=== PATIENT | female | born 1975 | race African-American/Black ===

== ENCOUNTER 2018-06-01 12:55 | Emergency (ER) | payer OTHER ==
[~2018-06-01] VITALS: Ht 165.1 cm; Wt 56.7 kg
[~2018-06-01 12:55] MED LIST: IBUP-1542 PO
[2018-06-01 13:54] VITALS: Ht 165.1 cm; Wt 56.7 kg
[2018-06-01] MEDS ORDERED: NORE1TAB12 PO (16:42)
[2018-06-01] MEDS ORDERED: SOD CHLORIDE 0.9% 1,000 ML IV STA (16:42)
--- NOTE | 2018-06-01 16:44 | ERD ---
ER Documentation Chief Complaint Chief Complaint ref: pancreatitis w 'increasing amylase'. L sided AP HPI 42-year-old female referred by her PMD for abdominal pain evaluation and increasing amylase level over the past few months. On initial blood tests done, the patient was noted to have a slightly increased amylase level on routine blood tests. For this reason, her primary care doctor has been monitoring her amylase. About 2 months ago, she underwent treatment for H pylori as well as PID. She states that her treatment finished about 2 weeks ago and she was doing well. On May 22 she went in for repeat blood tests and her amylase was noted to be elevated and increasing compared to prior. Since yesterday she has been having left-sided upper abdominal pain that has been constant, aching, occasionally radiating to her left flank and right lower quadrant. She has had associated decreased appetite but no nausea, vomiting, fever, chills, diarrhea. She does complain of constipation for the past few days as well. She is having only small bowel movements that are nonbloody without melena. Today she was going back to her primary care doctor for repeat blood test. Since she was having abdominal pain, she was sent to the ER. Per the patient, her primary care physician was concerned about pancreatitis although her lipase has never been elevated. She did have a recent ultrasound done outpatient as well which the patient showed me, and it was read as normal without any evidence of gallstones or pancreatic abnormalities. Of note, the patient is scheduled for a CT scan next week, ordered by her PMD for her lab abnormalities. ROS All systems reviewed and are negative except as per history of present illness. Medications Home Meds Reported Medications Noreth A-Et Estra/Fe Fumarate (LO LOESTRIN FE 1-10 TABLET) 1 Each Tablet, 1 TAB PO DAILY 06/01/18 Discontinued Scripts Ibuprofen* (Ibuprofen*) 600 Mg Tablet, 600 MG PO Q6H PRN for P, #30 TAB Prov:ERYN MEZA NP 11/27/14 Allergies Allergies: Coded Allergies: penicillin (Verified Allergy, Unknown, 06/01/18) PMhx/Soc History of Surgery: Yes (R. BREAST, L.FOOT, ) Anesthesia Reaction: No Hx Neurological Disorder: No Hx Respiratory Disorders: No Hx Cardiac Disorders: No Hx Psychiatric Problems: No Hx Miscellaneous Medical Probl: Yes (H.pylori, PID) Hx Alcohol Use: No Hx Substance Use: No Hx Tobacco Use: No FmHx Family History: No diabetes Physical Exam Vitals Vital Signs Date Temp Pulse Resp B/P (MAP) Pulse Ox O2 O2 Flow FiO2 Time Delivery Rate 06/01/18 98.3 72 18 116/88 100 Room Air 18:57 (97) 06/01/18 98.3 73 16 129/72 100 13:54 (91) Physical Exam Const: No acute distress Head: Atraumatic Eyes: Normal Conjunctiva ENT: Normal External Ears, Nose and Mouth. Neck: Full range of motion. No meningismus. Resp: Clear to auscultation bilaterally Cardio: Regular rate and rhythm, no murmurs Abd: Soft, left upper quadrant tender to deep palpation without rebound or guarding. No McBurney's point tenderness. Negative Castillo sign. non distended. Normal bowel sounds Skin: No petechiae or rashes Back: No midline or flank tenderness Ext: No cyanosis, or edema Neur: Awake and alert Psych: Normal Mood and Affect Result Diagram: 06/01/18 1716 06/01/18 1716 Results 24 hrs Laboratory Tests Test 06/01/18 17:16 White Blood Count 6.7 10^3/ul Red Blood Count 4.40 10^6/ul Hemoglobin 13.5 g/dl Hematocrit 41.4 % Mean Corpuscular Volume 94.1 fl Mean Corpuscular Hemoglobin 30.7 pg Mean Corpuscular Hemoglobin Concent 32.6 g/dl Red Cell Distribution Width 12.9 % Platelet Count 217 10^3/UL Mean Platelet Volume 11.7 fl Immature Granulocytes % 0.100 % Neutrophils % 59.3 % Lymphocytes % 32.3 % Monocytes % 6.4 % Eosinophils % 1.3 % Basophils % 0.6 % Nucleated Red Blood Cells % 0.0 /100WBC Immature Granulocytes # 0.010 10^3/ul Neutrophils # 4.0 10^3/ul Lymphocytes # 2.2 10^3/ul Monocytes # 0.4 10^3/ul Eosinophils # 0.1 10^3/ul Basophils # 0.0 10^3/ul Nucleated Red Blood Cells # 0.0 10^3/ul Urine Color YELLOW Urine Clarity SLIGHTLY CLOUDY Urine pH 7.0 Urine Specific Grant 1.017 Urine Ketones NEGATIVE mg/dL Urine Nitrite NEGATIVE mg/dL Urine Bilirubin NEGATIVE mg/dL Urine Urobilinogen NEGATIVE mg/dL Urine Leukocyte Esterase TRACE Angela/ul Urine Microscopic RBC 3 /HPF Urine Microscopic WBC 2 /HPF Urine Squamous Epithelial Cells FEW /HPF Urine Mucus FEW /HPF Urine Hemoglobin NEGATIVE mg/dL Urine Glucose NEGATIVE mg/dL Urine Total Protein NEGATIVE mg/dl Sodium Level 141 mmol/L Potassium Level 3.8 mmol/L Chloride Level 105 mmol/L Carbon Dioxide Level 24 mmol/L Anion Gap 12 Blood Urea Nitrogen 9 mg/dl Creatinine 0.81 mg/dl Est Glomerular Filtrat Rate mL/min > 60 mL/min Glucose Level 103 mg/dl Calcium Level 9.8 mg/dl Total Bilirubin 0.2 mg/dl Direct Bilirubin 0.00 mg/dl Indirect Bilirubin 0.2 mg/dl Aspartate Amino Transf (AST/SGOT) 20 IU/L Alanine Aminotransferase (ALT/SGPT) 19 IU/L Alkaline Phosphatase 73 IU/L Total Protein 8.1 g/dl Albumin 4.6 g/dl Globulin 3.50 g/dl Albumin/Globulin Ratio 1.31 Amylase Level 127 U/L Lipase 171 U/L Current Medications Medications Dose Sig/Eveilne Start Time Status Last (Trade) Ordered Route PRN Stop Time Admin Dose Reason Admin Sodium 1,000 ml @ Q1H STAT 06/01/18 DC 06/01/18 Chloride 1,000 mls/hr IV 16:42 17:41 06/01/18 17:41 Famotidine 20 mg ONCE ONCE 06/01/18 DC 06/01/18 (Pepcid) PO 17:00 17:41 06/01/18 17:01 40 ml ONCE STAT 06/01/18 DC 06/01/18 Miscellaneous PO 16:57 17:41 Medication 06/01/18 16:59 (Gi Cocktail (2)) Procedures/MDM EMERGENT LABS AND DIAGNOSTIC STUDIES: Lab Results above were reviewed and interpreted by me. CBC: no anemia or evidence of infection CMP: No evidence of electrolyte abnormality, renal failure, hypoglycemia, liver failure, or biliary obstruction Lipase: no evidence of pancreatitis Amylase slightly elevated, unclear etiology UA: no evidence of infection Radiology Results as interpreted by Radiology below were reviewed by Yoandy Castillo MD: XR abdomen: There is extensive stool seen throughout the colon with a small amount of bowel gas in the proximal descending colon. Initial Nursing notes reviewed. Previous Medical Records requested via the Electronic Health Record. EMERGENCY DEPARTMENT COURSE / MEDICAL DECISION MAKING: Patient is presenting with abdominal pain in the left upper quadrant for the p ast 2 days. Vitals are stable and she is afebrile and well-appearing. Differential includes but is not limited to pancreatitis, hepatitis, lower lobe pneumonia, gastritis, colitis, constipation, obstruction, ureterolithiasis, pyelonephritis. Doubt cardiac pathology or aortic dissection, Labs were ordered to evaluate for above and were notable only for mildly elevated amylase. Her x-ray did confirm evidence of constipation with a large amount of stool in the proximal descending colon, the area where the patient has been her most pain. I discussed these results with the patient. I recommended outpatient treatment with laxatives and stool softeners. Patient agrees to buy these [id number]. With regard to her elevated amylase, I discussed with the patient that amylase can be elevated in extrapancreatic disorders as well. There is no need for an emergent workup for this in the ER or hospitalization. However I did recommend she follow-up with the GI doctor if this persists. She will discussed this with her primary care doctor. At this time I reassured her that there is no evidence of pancreatitis. Patient feels comfortable with the discharge plan. Patient's blood pressure was elevated (>120/80) but appears stable without evidence of hypertensive emergency or urgency. The patient was counseled about the risks of hypertension and urged to pursue outpatient monitoring and therapy within a week with their primary care physician. Departure Diagnosis: Primary Impression: Abdominal pain Abdominal location: left upper quadrant Qualified Codes: R10.12 - Left up per quadrant pain Additional Impressions: Constipation Constipation type: unspecified constipation type Qualified Codes: K59.00 - Constipation, unspecified Serum amylase elevated Condition: Stable AKOSUA CASTILLO MD Jun 01, 2018 16:44
[2018-06-01] MEDS ORDERED: LIDOCAINE/MYLANTA 40 ML BTL PO STA (16:57)
[2018-06-01] MEDS ORDERED: FAMOTIDINE 20 MG TAB PO ONE (17:00)
[2018-06-01 18:57] VITALS: BP 116/88; PULSE 72; RESP 18
== END 2018-06-01 19:05 | disposition home or self-care (01) ==
LOC: E/R 12:55
DX: K59.00 Constipation, unspecified (principal); R40.2142 Coma scale, eyes open, spontaneous, at arrival to emergency department; R40.2362 Coma scale, best motor response, obeys commands, at arrival to emergency department; R40.2252 Coma scale, best verbal response, oriented, at arrival to emergency department; R74.8 Abnormal levels of other serum enzymes
CPT/HCPCS: 36415; 74018; 80053; 81001; 82150; 83690; 85025; 99284; J7030